=== PATIENT | male | born 1990 | race Caucasian/White ===

== ENCOUNTER 2025-01-17 17:08 | Emergency (ER) | payer MEDICAID, OTHER ==
[~2025-01-17] VITALS: Ht 170.2 cm; Wt 65.2 kg
[2025-01-17 17:10] VITALS: BP 125/87; RESP 18; TEMP 98.3; O2SAT 97
[2025-01-17 18:15] VITALS: PULSE 67
--- NOTE | 2025-01-17 18:27 | ED.PDOC ---
HPI Comments 34 year old male presents to the ED for the c/c of Left sided Chest pain. Pt states that his CP has been on-set for the past 2x weeks that radiates down to his left forearm. Patient reports he had a recent negative laboratory panel with the primary care provider. Pt notes that he was sleeping when the pain started, bur has since worsened prompting his visit to the ED. Pt notes he has has Right shoulder Hx, and Social Hx of Vaping. No other associated symptoms, modifiers, recent injuries or sick contacts present at this time. Chief Complaint: Chest Pain Time Seen by MD: 18:19 Primary Care Provider: [facility] Reviewed Notes: Nurses Notes, Medications, Allergies Allergies: Coded Allergies: NO KNOWN ALLERGIES (Unverified , 02/15/10) Information Source: Patient Mode of Arrival: Ambulatory Severity: Moderate Timing: Weeks Duration: Since onset Prehospital treatment: None Location: Chest (L) Radiation: Arm (L) Quality: Squeezing Onset: At Rest Cardiac Risk Factors: Smoker PE Risk Factors: None History of: None Modifying Factors: Exertion Associated Signs and Symptoms: None Vital Signs Vital Signs Date Time Temp Pulse Resp B/P (MAP) Pulse Ox O2 Delivery O2 Flow Rate FiO2 01/17/25 18:15 67 01/17/25 17:10 98.3 18 125/87 (100) 97 98.3 Physical Exam General: Awake, alert and oriented. No acute distress. Skin: Skin in warm, dry and intact. Appropriate color for ethnicity. HEENT: The head is normocephalic and atraumatic. Conjunctivae are clear without exudates or hemorrhage. Sclera is non-icteric. EOM are intact. No signs of nystagmus. Eyelids are normal in appearance without swelling or lesions. Oral mucosa is pink and moist Neck: The neck is supple with normal range of motion. No JVD. Cardiac: Heart rate and rhythm are normal. No murmurs, gallops, or rubs are auscultated. Respiratory: No signs of respiratory distress. Lung sounds are clear in all lobes bilaterally without rales, rhonchi, or wheezes. Abdominal: Abdomen is soft, non-tender without distention, guarding or rigidity. Bowel sounds are present and normoactive in all four quadrants. Extremities: Upper and lower extremities are atraumatic in appearance without deformity or edema. Neurological: The patient is awake, alert and oriented to person, place, and time with normal speech. Speech is clear. There is no facial asymmetry. Psychiatric: Appropriate mood and affect. Good judgement and insight. Review of Systems: REVIEW OF SYSTEMS: No fever, no chills, or fatigue HEENT: No sore throat, no earache, no congestion, no neck pain. Cardiac: + chest pain. No palpitations. Lungs: No shortness of breath, no cough. GI: No nausea, no vomiting, no diarrhea, no constipation, no abdominal pain : No dysuria, frequency, or urgency. No hematuria. Musculoskeletal: No joint pain , no joint swelling, no extremity edema. Skin: No rash, no itching. Neuro: No headache, no dizziness, no weakness Past Medical History PAST MEDICAL HISTORY: Denies Family History Family History: Unobtainable Social History Smoker: Non-Smoker Alcohol: Denies ETOH Use Drugs: Denies Drug Use Lives In: Home EKG EKG : Comments Sinus rhythm, no STEMI Was a procedure done? Was a procedure done?: No CP Differential Dx Differential Diagnosis: Angina, Other (Differential diagnoses considered include acute ischemic coronary syndrome, aortic dissection, cardiac tamponade, mediastinitis, pulmonary embolus, pneumothorax, tension pneumothorax, esophageal rupture, coronary artery vasospasm, myocarditis, pericarditis, pneumonia, pulmonary edema, esophageal tear, pancreatitis, aortic stenosis, dilated cardiomyopathy, hypertrophic cardiomyopathy, mitral valve prolapse, malignancy, pleuritis, pneumomediastinum, primary pulmonary hypertension, cholecystitis, esophageal spasm, esophagus, gastritis, GERD, peptic ulcer disease, costochondritis, fibromyalgia, rib fracture, herpes zoster, radicular syndromes, thoracic outlet syndrome, somatization.) Differential Diagnosis: Angina, Chest Wall Pain, Esophageal reflux/spasm X-Ray, Labs, Meds, VS Vital Signs Date Time Temp Pulse Resp B/P (MAP) Pulse Ox O2 Delivery O2 Flow Rate FiO2 01/17/25 18:15 67 01/17/25 17:13 84 01/17/25 17:10 98.3 83 18 125/87 (100) 97 98.3 Lab Test 01/17/25 18:24 01/17/25 17:15 Range/Units Troponin I High Sensitivity < 3 L < 3 L </=54 ng/L PATIENT: MARIBETH HERNANDEZ ACCT: [id number] UNIT: [id number] : 1990 LOC: ER ROOM / BED: / AGE / SEX: 34 / M ADM STATUS: REG ER SERVICE 17 ORDERING PHYSICIAN: KAE CAST MD PROCEDURE(s): CXR1 - CHEST XRAY 1 VIEW REASON: Chest pain ORDER NUMBER(s): [id number], ACCESSION NUMBER(s): [id number] CHEST RADIOGRAPH Indication: Chest pain Technique: Single frontal view of the chest was obtained Comparison: None FINDINGS: Lines and Tubes: None Lungs: No focal consolidation. Pleura: No effusion. No pneumothorax. Cardiomediastinal contours: Unremarkable Bones: No acute osseous abnormality. IMPRESSION: 1. No acute cardiopulmonary disease. Time of 1ST Reevaluation: 18:50 Reevaluation 1ST: Unchanged Patient Education/Counseling: Need For Follow Up Family Education/Counseling: No Family Present Departure 1 Departure Time of Disposition: 19:33 Impression: Primary Impression: Chest pain Disposition: 01 HOME / SELF CARE / HOMELESS Condition: Stable Additional Instructions: ED DISCHARGE INSTRUCTIONS Instructions: Please read all instructions provided in this packet carefully. Although you have been discharged from the Emergency Department, this does not mean that you have a "clean bill of health". No definitive diagnosis for your symptoms has been made today. It is possible that you are in the process of developing a serious illness. This is why you must return to the ED without fail if any new or worsening symptoms (especially if your symptoms include chest pain, trouble breathing, abdominal pain, fever, headache, confusion, trouble seeing, or trouble walking) It is also very important that you see a primary care doctor within the next 3-5 days to follow up. If you are unable to get an appointment, return to the ED for re-evaluation. CHEST PAIN EDUCATION There are many things that can cause chest pain. Some are not serious and will get better on their own in a few days. But some kinds of chest pain need more testing and treatment. Your doctor may have recommended a follow-up visit in the next few days. If you are not getting better, you may need more tests or treatment. Even though your doctor has released you, you still need to watch for any problems. The doctor carefully checked you, but sometimes problems can develop later. If you have new symptoms or if your symptoms do not get better, get medical care right away. If you have worse or different chest pain or pressure that lasts more than 5 minutes or you passed out (lost consciousness), call 911 or seek other emergency help right away. A medical visit is only one step in your treatment. Even if you feel better, you still need to do what your doctor recommends, such as going to all suggested follow-up appointments and taking medicines exactly as directed. This will help you recover and help prevent future problems. How can you care for yourself at home? Rest until you feel better. Take your medicine exactly as prescribed. Call your doctor if you think you are having a problem with your medicine. Do not drive after taking a prescription pain medicine. When should you call for help? Call 911 if: You passed out (lost consciousness). You have severe difficulty breathing. You have symptoms of a heart attack. These may include: Chest pain or pressure, or a strange feeling in your chest. Sweating. Shortness of breath. Nausea or vomiting. Pain, pressure, or a strange feeling in your back, neck, jaw, or upper belly or in one or both shoulders or arms. Lightheadedness or sudden weakness. A fast or irregular heartbeat. After you call 911, the melter operator may tell you to chew 1 adult-strength or 2 to 4 low-dose aspirin. Wait for an ambulance. Do not try to drive yourself. Call your doctor now or seek immediate medical care if: You have any trouble breathing. You have new or different chest pain. You are dizzy or lightheaded, or you feel like you may faint. Watch closely for changes in your health, and be sure to contact your doctor if you do not get better as expected. Current as of: March 09, 2024 Author: Zweemie Staff? Comments 34-year-old male with chest pain. EKG negative for signs of ischemia. High sensitivity troponin negative. CXR shows no acute process. Presentation not suggestive of acute coronary syndrome, pulmonary embolism or aortic dissection. Patient improved at time of discharge. No hypoxia, respiratory distress or dyspnea at discharge. Patient able to ambulate without difficulty. I reviewed the following notes from the pt's past medical encounters: N/A The following tests were ordered, and results were reviewed by me: (See diagnostic results section) The following test were independently interpreted by me: EKG Additional information was gathered from interviewing the following independent historians: N/A I reviewed and agreed with the following test results read by other providers: Chest x-ray I discussed treatments and results with patient Decision regarding hospitalization or escalation of hospital level of care: Risks and benefits of admission for further treatment of patient's condition was considered however due to patient's stable condition patient will be discharged to follow up closely or return to care for worsening of condition or inability to follow up. Critical Care Note Critical Care Time?: No Stability Stability form required: No Heart Score Heart Score: Heart Score Response (Comments) Value History Slightly Suspicious 0 EKG Normal 0 Age <45 0 Risk Factors 1 or 2 risk factors 1 Troponin Normal limit 0 Total 1 I personally scribed for KAE CAST MD ([email or web address]) on 01/17/25 at 18:27. Electronically submitted by Carmine Barnard ([email or web address]). I personally scribed for KAE CAST MD ([email or web address]) on 01/17/25 at 19:31. Electronically submitted by Carmine Barnard ([email or web address]). KAE CAST MD Jan 17, 2025 18:27
--- NOTE | 2025-01-17 18:30 | ECG ---
[facility] Test Date: 2025-01-17 Test Time: 17:13:18 Pat Name: MARIBETH HERNANDEZ Department: ER Room: Gender: M Judicial Administrative Assistant: MOODY : 1990 Requested By: AVI KING Order Number: [id number] Reading MD: Adis Mcdonald Measurements Intervals [place] Rate: 84 P: 60 [place]: 130 QRS: 71 QRSD: 114 T: 64 QT: 384 QTc: 454 Interpretive Statements Sinus rhythm Borderline intraventricular conduction delay Electronically Signed On 01-18-2025 21:11:25 PDT by Adis Mcdonald Please click the below link to view image of tracing.
--- NOTE | 2025-01-17 18:30 | ECG ---
[facility] Test Date: 2025-01-17 Test Time: 18:15:17 Pat Name: MARIBETH HERNANDEZ Department: ER Room: Gender: M Stereotype Finisher: BERNABE : 1990 Requested By: AVI KING Order Number: [id number] Reading MD: Adis Mcdonald Measurements Intervals [place] Rate: 67 P: 63 [place]: 109 QRS: 91 QRSD: 91 T: 64 QT: 400 QTc: 423 Interpretive Statements Sinus rhythm Short [place] interval Borderline right axis deviation Electronically Signed On 01-18-2025 21:11:38 PDT by Adis Mcdonald Please click the below link to view image of tracing.
--- NOTE | 2025-01-17 19:23 | DVH ---
CHEST RADIOGRAPH Indication: Chest pain Technique: Single frontal view of the chest was obtained Comparison: None FINDINGS: Lines and Tubes: None Lungs: No focal consolidation. Pleura: No effusion. No pneumothorax. Cardiomediastinal contours: Unremarkable Bones: No acute osseous abnormality. IMPRESSION: 1. No acute cardiopulmonary disease.
== END 2025-01-17 20:07 | disposition home or self-care (01) ==
LOC: ER 17:21
DX: R07.89 Other chest pain (principal)
CPT/HCPCS: 36415; 71045; 84484; 93005